=== PATIENT | male | born 1985 | race Caucasian/White ===

== ENCOUNTER 2017-02-20 16:49 | Emergency (ER) | END 2017-02-20 17:58 | disposition home or self-care (01) | DX: L72.3 Sebaceous cyst (principal); J45.909 Unspecified asthma, uncomplicated; I10 Essential (primary) hypertension; F17.210 Nicotine dependence, cigarettes, uncomplicated; Z79.82 Long term (current) use of aspirin ==

== ENCOUNTER 2017-02-26 15:27 | Emergency (ER) | payer OTHER ==
[~2017-02-26] VITALS: Ht 170.2 cm; Wt 108.0 kg
[~2017-02-26 15:27] MED LIST: ALBU8.5H5 INH; ALPR0.5T PO; AMLO-145 PO; AMLO-147 PO; ASPI-664 PO; ASPI500T19 PO; ATOR20TA65 PO; CLIN-73 PO; FAMILY TO BRING MEDS; HYDR-3498 PO; LISI10TA2 PO; METO-407 PO; METO-53 PO; METO25TA4 PO; METO50TA16 PO; PRED20TA PO; TRAM50TA2 PO
[2017-02-26 15:30] VITALS: Ht 170.2 cm; Wt 108.0 kg
[2017-02-26] MEDS ORDERED: LIDOCAINE 1% (MDV) 20 ML INJ SC ONE (16:30)
--- NOTE | 2017-02-26 17:23 | ERD ---
ER Documentation Chief Complaint Date/Time DATE: 02/26/17 TIME: 17:22 Chief Complaint Complains of abscess to right ear HPI This 31-year-old male returns for recheck on a diagnosis of an abscess behind his right ear last week. He is taking clindamycin. Feels that the lesion is smaller although it is increased in pain. Denies any fevers, vomiting, discharge ROS All systems reviewed and are negative except as per history of present illness. Medications Home Meds Active Scripts Clindamycin Hcl* (Clindamycin Hcl*) 300 Mg Capsule, 300 MG PO TID for 7 Days, CAP Prov:KWAME LARRY PA-C 02/20/17 Tramadol HCl (Tramadol HCl) 50 Mg Tablet, 50 MG PO TID for PAIN, #20 TAB Prov:LAURA GE MD 05/10/16 Albuterol Sulfate* (Albuterol Sulfate* HFA) 8.5 Gm Hfa.aer.ad, 1-2 PUFF INH Q4 Y for SHORTNESS OF BREATH, #1 EA Prov:LAURA GE MD 03/17/15 Reported Medications Atorvastatin Calcium (Atorvastatin Calcium) 20 Mg Tablet, 20 MG PO QHS, #30 05/10/16 Aspirin* (Aspirin* EC) 81 Mg Tablet.dr, 81 MG PO DAILY, TAB 05/10/16 Lisinopril* (Lisinopril*) 10 Mg Tablet, 10 MG PO DAILY, #30 TAB 05/10/16 Metoprolol Tartrate* (Lopressor*) 100 Mg Tablet, 100 MG PO BID, #60 TAB 05/10/16 Allergies Allergies: Coded Allergies: Penicillins (Verified Allergy, Unknown, 05/31/15) PMhx/Soc History of Surgery: Yes (COILS INSERTED/ BRAIN ANUERYSM 2012) Anesthesia Reaction: No Hx Neurological Disorder: Yes (BRAIN ANUERYSM) Hx Respiratory Disorders: Yes (ASTHMA ) Hx Cardiac Disorders: Yes (HTN, high cholesterol) Hx Psychiatric Problems: No Hx Miscellaneous Medical Probl: No Hx Alcohol Use: Yes Hx Substance Use: No Hx Tobacco Use: Yes Smoking Status: Former smoker Physical Exam Vitals Vital Signs Date Time Temp Pulse Resp B/P Pulse Ox O2 Delivery O2 Flow Rate FiO2 02/26/17 15:30 98.1 67 18 146/82 98 Physical Exam Const: [] Head: Atraumatic Eyes: Normal Conjunctiva ENT: Normal External Ears, Nose and Mouth. Behind the right ear in the retroauricular area there is some a 1.2 cm area of redness, fluctuance and tenderness. There is no active discharge. There is no mastoid tenderness Neck: Full range of motion..~ No meningismus. Resp: Clear to auscultation bilaterally Cardio: Regular rate and rhythm, no murmurs Abd: Soft, non tender, non distended. Normal bowel sounds Skin: No petechiae or rashes Back: No midline or flank tenderness Ext: No cyanosis, or edema Neur: Awake and alert Psych: Normal Mood and Affect Results 24 hrs Current Medications Medications (Trade) Dose Ordered Sig/Taran Route PRN Reason Start Time Stop Time Status Last Admin Dose Admin Lidocaine (Xylocaine 1% (Mdv) 20 ml) 20 ml ONCE ONCE SC 02/26/17 16:30 02/26/17 16:31 DC Procedures/MDM Patient presents with an abscess in the right posterior auricular area without evidence of mastoiditis, sepsis. No evidence of necrotizing fasciitis signs do not suggest osteomyelitis. Procedure note-the right retroauricular area was prepped with Betadine. 1 cc of lidocaine was used for local nutrition. #11 scalpel was used to incise the wound and pus was expressed. Loculations were broken up with a swab. Approximately 4 cm of quarter-inch gauze was used to pack the wound and patient tolerated procedure well and the wound was dressed Patient will be discharged home with instructions to continue antibiotics and for wound check in 2-3 days for gauze removal. He should return sooner for fevers, redness, new or worsening symptoms. Departure Diagnosis: Primary Impression: Abscess Patient Instructions: Abscess, Incision And Drainage Additional Instructions: Wound check in 2-3 days for gauze removal. KIEL NAVAS MD Feb 26, 2017 17:23
== END 2017-02-26 17:35 | disposition home or self-care (01) ==
LOC: FTE 15:27
DX: H60.01 Abscess of right external ear (principal); I10 Essential (primary) hypertension; J45.909 Unspecified asthma, uncomplicated; Z79.82 Long term (current) use of aspirin; Z87.891 Personal history of nicotine dependence

== ENCOUNTER 2017-08-02 22:01 | Emergency (ER) | END 2017-08-03 18:44 | disposition left against medical advice (07) ==

== ENCOUNTER 2018-02-04 15:48 | Emergency (ER) | END 2018-02-04 20:15 | disposition home or self-care (01) ==

== ENCOUNTER 2018-02-06 19:46 | Observation (INO) | END 2018-02-08 15:25 | disposition home or self-care (01) ==